=== PATIENT | female | born 1970 ===

== ENCOUNTER 2021-02-27 13:01 | Emergency (ER) | payer OTHER, SELFPAY ==
[2021-02-27] VITALS (15 sets, daily range): BP systolic 148–172; BP diastolic 78–105; PULSE 82–104; RESP 13–39; O2SAT 93–99
--- NOTE | 2021-02-27 13:24 | DI.RAD.S_ITS ---
PROCEDURE: XR CHEST 1V INDICATIONS: flu-like symptoms TECHNIQUE: One view of the chest was acquired. COMPARISON: None. FINDINGS: Surgical changes and devices: None. Lungs and pleura: Lungs are clear. No pleural effusions or pneumothorax. Mediastinum: Mediastinal contours appear normal. Heart size is enlarged. Bones and chest wall: No suspicious bony lesions. Overlying soft tissues appear unremarkable. IMPRESSION: No acute cardiopulmonary pathology. Dictated by: Dhiraj Flynn M.D. on 02/27/2021 at 14:07 Approved by: Dhiraj Flynn M.D. on 02/27/2021 at 14:08
[2021-02-27 13:43] LABS: Add Manual Diff / Slide Review NO; Basophils Absolute Auto 0 /uL (0-100); Basophils Percent Auto 0.4 % (0-2); Eosinophils Absolute Auto 600 /uL (0-450); Eosinophils Percent Auto 6.8 % (2-4); Hematocrit 34.1 % (36-46); Hemoglobin 11.3 g/dL (12.0-16.0); Lymphocytes Absolute Auto 1600 /uL (1100-4500); Mean Corpuscular HGB Conc 33.1 % (30-36); Mean Corpuscular Hemoglobin 26.9 PG (26-34); Mean Corpuscular Volume 81.4 fL (80-100); Monocytes Absolute Auto 600 /uL (0-900); Monocytes Percent Auto 5.9 % (3-14); Neutrophils Absolute Auto 6600 /uL (1500-7000); Neutrophils Percent Auto 69.9 % (50-75); Platelet Count 331 X10^3/uL (150-400); Red Blood Cell Count 4.19 X10^6/uL (4.0-5.2); White Blood Cell Count 9.5 X10^3/uL (4.5-11.0)
[2021-02-27 13:44] LABS: COVID19 -Nasal RAPID Negative (Negative)
[2021-02-27 13:49] LABS: D Dimer 546 ng/mL (<230)
--- NOTE | 2021-02-27 13:53 | DI.CT.S_ITS ---
PROCEDURE: CT ANGIO CHEST INDICATIONS: SOB, elevated D-dimer, r/o PE TECHNIQUE: After the administration of intravenous contrast, 2 mm thick sections acquired from the pulmonary apices to the posterior costophrenic angles. 3-dimensional maximum intensity projection (MIP) coronal and sagittal reformats were then acquired through the thorax. For radiation dose reduction, the following was used: automated exposure control, adjustment of mA and/or kV according to patient size. COMPARISON: [facility], CR, XR CHEST 1V, 02/27/2021, 13:45. FINDINGS: Image quality: Excellent. Pulmonary arteries: Pulmonary arteries are normal in size, and demonstrate no intraluminal filling defects to suggest central pulmonary embolism. Lungs and pleura: No evidence of pneumonia or edema. 3 mm subpleural nodule within the right upper lobe anterolaterally (series 5, image 107). Mild scarring versus atelectasis within the left posterior lung base. Sessile 5 mm nodule within the medial aspect of the left major fissure. Subpleural 4 mm nodule within the left upper lobe posteriorly adjacent to the major fissure (series 5, image 68). No pleural effusions or pneumothorax. Central and peripheral airways are patent. Mediastinum: Heart size is normal, without pericardial effusion. No mediastinal or hilar adenopathy. Thoracic aorta is normal in caliber and enhancement. Esophagus is normal in caliber, without hiatal hernia. Bones and chest wall: No suspicious bony lesions. Ribs and thoracic spine appear intact throughout. Thyroid gland is grossly unremarkable. No axillary or supraclavicular adenopathy. Abdomen: Visualized upper abdominal solid organs appear normal in the early arterial phase of enhancement. IMPRESSION: 1. No acute process. No pulmonary embolus. 2. Small bilateral pulmonary nodules. Follow-up is recommended as below. Fleischner Society criteria for SOLID lung nodule followup. Nodule size (mm)Low-risk patientHigh-risk patient<6 (single or multiple)No routine followup.Optional CT at 12 months. 6-8 (single or multiple)CT at 6-12 months, then optional CT at 18-24 mo.CT at 6-[address], [address] at 18-24 months. >8 (single)CT, PET-CT, or biopsy at 3 months. Same as for low-risk pts. >8 (multiple)CT at 3-6 months, then optional CT at 18-24 mo.CT at 3-6 months, then CT at 18-24 months. Recommendations do not apply to lung cancer screening, patients with immunosuppression, or patients with known primary cancer. Dictated by: Meg Diaz M.D. on 02/27/2021 at 14:30 Approved by: Meg Diaz M.D. on 02/27/2021 at 14:34
[2021-02-27 13:58] LABS: Lactate (Lactic Acid) 2.1 mmol/L (0.7-2.1)
[2021-02-27 14:00] LABS: Alanine Aminotransferase 20 IU/L (<35); Albumin 4.1 g/dL (3.5-5.0); Albumin Globulin Ratio 1.3 (1.0-2.8); Alkaline Phosphatase 59 U/L (38-126); Aspartate Aminotransferase 24 IU/L (14-36); BUN Creatinine Ratio 14.8 (6-22); Bilirubin Total 0.4 mg/dL (0.2-1.3); Blood Urea Nitrogen 8 mg/dL (7-17); C-Reactive Protein Quant 0.6 mg/dL (<1.0); Calcium 8.9 mg/dL (8.4-10.2); Carbon Dioxide 22 mmol/L (22-32); Chloride 106 mmol/L (98-107); Creatine Kinase 25 U/L (30-135); Estimated Glomerular Filt Rate > 60.0 mL/min (>60); Globulin 3.2 g/dL (1.7-4.1); Glucose 138 mg/dL (70-100); HEMOLYSIS < 15 (0-50); Potassium 3.5 mmol/L (3.4-5.1); Sodium 137 mmol/L (137-145); Total Protein 7.3 g/dL (6.3-8.2)
[2021-02-27 14:09] LABS: NT-proBNP (BNP-Adult 18+) 128 pg/mL (<125); Troponin I < 0.012 ng/mL (0.01-0.034)
[2021-02-27 14:26] LABS: Adenovirus Not Detected (Not Detect); B. parapertussis Not Detected (Not Detecte); Bordetella pertussis Not Detected (Not Detecte); Chlamydophila pneumoniae Not Detected (Not Detect); Coronavirus 229E Not Detected (Not Detect); Coronavirus HKU1 Not Detected (Not Detect); Coronavirus NL 63 Not Detected (Not Detect); Coronavirus OC43 Not Detected (Not Detect); Human Metapneumovirus Not Detected (Not Detect); Human Rhinovirus/Enterovirus Detected (Not Detect); Influenza A Not Detected (Not Detect); Influenza B Not Detected (Not Detect); Mycoplasma pneumoniae Not Detected (Not Detect); Parainfluenza Virus 1 Not Detected (Not Detect); Parainfluenza Virus 2 Not Detected (Not Detect); Parainfluenza Virus 3 Not Detected (Not Detect); Parainfluenza Virus 4 Not Detected (Not Detect); Respiratory Syncytial Virus Not Detected (Not Detect); SARS- CoV-2 Not Detected (Not Detecte)
[2021-02-27 14:32] LABS: Ferritin 7 ng/mL (11-264)
[2021-02-27 15:02] LABS: Procalcitonin 0.043 ng/mL (<0.5)
--- NOTE | 2021-02-27 15:06 | ED.SOB ---
HPI - SOB/Dyspnea <Edward Eason PA-C - Last Filed: 02/27/21 19:50> General Chief Complaint: Shortness of Breath/Dyspnea Stated Complaint: Trouble breathing, coughing Time Seen by Provider: 02/27/21 13:33 Source: patient Mode of arrival: Ambulatory Limitations: no limitations History of Present Illness HPI Narrative: Patient is a 50-year-old female presenting to the emergency department today for evaluation of shortness of breath that began yesterday. Patient states that she had trouble to [facility] last week to visit her daughter for Thanksgiving. After the visit she noted that she started to begin experiencing a sore throat 4 days ago. She then began to experience a productive cough yesterday with increased difficulty breathing, noting that the inhaler that she uses for asthma exacerbations was not helping her symptoms. She also reports chest pain with deep inspiration, episodes of chills last night, an episode of diarrhea yesterday, and headache today. Patient denies fever, abdominal pain, nausea, vomiting, dysuria, hematuria, numbness or tingling in the extremities, hemoptysis. Of note, patient states that she had experienced a blood clot back in 2000 following a . No other concerns voiced this time. Related Data Home Medications Medication Instructions Recorded Confirmed albuterol sulfate 90 mcg/actuation 2 inh INHALATION Q6HR PRN 02/27/21 02/27/21 aerosol inhaler montelukast 4 mg chewable tablet 4 mg PO QAM 02/27/21 02/27/21 ropinirole 0.25 mg tablet 0.25 mg PO BEDTIME 02/27/21 02/27/21 Previous Rx's Medication Instructions Recorded prednisone 50 mg tablet 50 mg PO DAILY #5 tab 02/27/21 Allergies Allergy/AdvReac Type Severity Reaction Status Date / Time sulfamethoxazole Allergy Unknown Verified 02/27/21 14:13 [From Bactrim] trimethoprim [From Bactrim] Allergy Unknown Verified 02/27/21 14:13 Review of Systems <Edward Eason PA-C - Last Filed: 02/27/21 19:50> Constitutional Constitutional: Reports chills, Denies fatigue, Denies fever(s), Denies frequent falls, Reports headache(s), Denies lethargy and Denies weakness ENT Ears, Nose, Mouth, and Throat: Denies change in voice, Denies dizziness, Reports headache(s), Denies neck pain, Reports sore throat and Denies throat swelling Cardiovascular Cardiovascular: Reports chest pain, Denies irregular heart rhythm, Denies lightheadedness, Denies palpitations, Reports dyspnea and Reports dyspnea on exertion Respiratory Respiratory: Reports cough, Reports dyspnea, Reports dyspnea on exertion and Reports wheezing Gastrointestinal Gastrointestinal: Denies abdominal pain, Denies change in bowel habits, Reports diarrhea, Denies nausea and Denies vomiting Genitourinary Genitourinary: Denies hematuria, Denies flank pain, Denies urinary incontinence and Denies urinary urgency Musculoskeletal Musculoskeletal: Denies neck pain Neurologic Neurologic: Denies dizziness, Denies frequent falls, Reports headache(s) and Denies weakness Endocrine Endocrine: Denies fatigue and Denies palpitations Allergic/Immunologic Allergic/Immunologic: Denies urticaria, Denies throat swelling and Reports wheezing Patient History <Edward aEson PA-C - Last Filed: 02/27/21 19:50> Social History Smoking Status: Never smoker Smoking Status: Never smoker Substance Use Type: does not use Exam <Edward Eason PA-C - Last Filed: 02/27/21 19:50> Narrative Exam Narrative: GENERAL: 50 year old patient appears stated age. Well-developed patient, in mild distress. HEAD: Atraumatic. Normocephalic. EYES: Pupils equal round and reactive. Extraocular motions intact. No scleral icterus. No injection or drainage. ENT: Nose without bleeding, purulent drainage. Throat without erythema, tonsillar hypertrophy or exudate. Airway patent. NECK: Trachea midline. Non tender CARDIOVASCULAR: Regular rate and rhythm without murmurs, gallops, or rubs. RESPIRATORY: Inspiratory wheeze throughout all lobes bilaterally and expiratory stridor auscultated. GASTROINTESTINAL: Abdomen soft, non-tender, nondistended. EXTREMITIES: No edema or joint tenderness. BACK: Nontender without deformity or crepitance. No flank tenderness. NEURO: AOx3. SKIN: No rash or erythema of visible areas Initial Vital Signs Initial Vital Signs: Vital Signs Pulse Rate 96 H 02/27/21 13:10 Blood Pressure 172/103 H 02/27/21 13:10 Pulse Oximetry 94 02/27/21 13:10 <Aaron Graham DO - Last Filed: 03/01/21 07:18> Initial Vital Signs Initial Vital Signs: Vital Signs Pulse Rate 96 H 02/27/21 13:10 Blood Pressure 172/103 H 02/27/21 13:10 Pulse Oximetry 94 02/27/21 13:10 Course <Edward Eason PA-C - Last Filed: 02/27/21 19:50> Course Course Narrative: COVID swab, CMP CBC, D-dimer, ferritin, lactate, BNP, troponin, CRP, procalcitonin, chest x-ray, CT angiogram, EKG, and blood culture obtained Orders Ordered: Discontinued Medications Albuterol/Ipratropium (Albuterol/Ipratropium 3 Ml Ampul) 3 ml INH NOW ONE Stop: 02/27/21 15:01 Last Admin: 02/27/21 15:29 Dose: 3 ml Documented by: NICHOLAS Vital Signs Vital signs: Vital Signs - 8 hr 02/27/21 13:10 02/27/21 13:12 02/27/21 13:13 Pulse Rate 96 H 98 H 104 H Respiratory Rate 35 H 18 Blood Pressure 172/103 H 172/105 H 172/103 H Pulse Oximetry 94 94 96 02/27/21 13:15 02/27/21 13:30 02/27/21 13:45 Pulse Rate 95 H 85 97 H Respiratory Rate 13 16 39 H Blood Pressure 154/78 H Pulse Oximetry 95 93 95 02/27/21 14:00 02/27/21 14:20 02/27/21 14:30 Pulse Rate 89 84 84 Respiratory Rate 20 15 21 Blood Pressure 154/95 H Pulse Oximetry 95 95 93 02/27/21 14:45 02/27/21 15:00 02/27/21 15:13 Pulse Rate 82 83 87 Respiratory Rate 21 21 32 H Blood Pressure 152/102 H Pulse Oximetry 94 94 95 02/27/21 15:33 02/27/21 15:35 02/27/21 16:23 Pulse Rate 86 88 90 Respiratory Rate 18 18 Blood Pressure 148/78 H Pulse Oximetry 98 97 99 <Aaron Graham DO - Last Filed: 03/01/21 07:18> Orders Ordered: Discontinued Medications Albuterol/Ipratropium (Albuterol/Ipratropium 3 Ml Ampul) 3 ml INH NOW ONE Stop: 02/27/21 15:01 Last Admin: 02/27/21 15:29 Dose: 3 ml Documented by: NICHOLAS Vital Signs Vital signs: Vital Signs - 8 hr 02/27/21 13:10 02/27/21 13:12 02/27/21 13:13 Pulse Rate 96 H 98 H 104 H Respiratory Rate 35 H 18 Blood Pressure 172/103 H 172/105 H 172/103 H Pulse Oximetry 94 94 96 02/27/21 13:15 02/27/21 13:30 02/27/21 13:45 Pulse Rate 95 H 85 97 H Respiratory Rate 13 16 39 H Blood Pressure 154/78 H Pulse Oximetry 95 93 95 02/27/21 14:00 02/27/21 14:20 02/27/21 14:30 Pulse Rate 89 84 84 Respiratory Rate 20 15 21 Blood Pressure 154/95 H Pulse Oximetry 95 95 93 02/27/21 14:45 02/27/21 15:00 02/27/21 15:13 Pulse Rate 82 83 87 Respiratory Rate 21 21 32 H Blood Pressure 152/102 H Pulse Oximetry 94 94 95 02/27/21 15:33 02/27/21 15:35 02/27/21 16:23 Pulse Rate 86 88 90 Respiratory Rate 18 18 Blood Pressure 148/78 H Pulse Oximetry 98 97 99 MDM - SOB/Dyspnea <Edward Eason PA-C - Last Filed: 02/27/21 19:50> Lab Data Result diagrams: 02/27/21 13:20 02/27/21 13:20 Labs: Lab Results 02/27/21 02/27/21 02/27/21 Range/Units 13:09 13:20 13:20 WBC (4.5-11.0) X10^3/uL RBC (4.0-5.2) X10^6/uL Hgb (12.0-16.0) g/dL Hct (36-46) % MCV (80-100) fL MCH (26-34) PG MCHC (30-36) % RDW (11.6-14.8) % Plt Count (150-400) X10^3/uL Neut % (Auto) (50-75) % Lymph % (Auto) (25-40) % [place] % (Auto) (3-14) % Eos % (Auto) (2-4) % Baso % (Auto) (0-2) % Neut # (Auto) (9417-2982) /uL Lymph # (Auto) (3913-6498) /uL [place] # (Auto) (0-900) /uL Eos # (Auto) (0-450) /uL Baso # (Auto) (0-100) /uL D-Dimer 546 H (<230) ng/mL Sodium (137-145) mmol/L Potassium (3.4-5.1) mmol/L Chloride (98-107) mmol/L Carbon Dioxide (22-32) mmol/L BUN (7-17) mg/dL Creatinine (0.52-1.04) mg/dL Estimated GFR (>60) mL/min BUN/Creatinine Ratio (6-22) Glucose (70-100) mg/dL Lactate (0.7-2.1) mmol/L Calcium (8.4-10.2) mg/dL Ferritin (11-264) ng/mL Total Bilirubin (0.2-1.3) mg/dL AST (14-36) IU/L ALT (<35) IU/L Alkaline Phosphatase (38-126) U/L Total Creatine Kinase (30-135) U/L CK-MB (CK-2) CK-MB (CK-2) Rel Index Troponin I (0.01-0.034) ng/mL C-Reactive Protein (<1.0) mg/dL NT-Pro-B Natriuret Pep (<125) pg/mL Total Protein (6.3-8.2) g/dL Albumin (3.5-5.0) g/dL Globulin (1.7-4.1) g/dL Albumin/Globulin Ratio (1.0-2.8) Procalcitonin 0.043 (<0.5) ng/mL Chlamy pneumoniae PCR (Not Detect) Adenovirus (PCR) (Not Detect) B. pertussis DNA (PCR) (Not Detecte) B.parapertussis DNA PCR (Not Detecte) Coronavirus OC43 (PCR) (Not Detect) Coronavirus HKU1 (PCR) (Not Detect) Coronavirus 229E (PCR) (Not Detect) SARS-CoV-2 (PCR) Negative (Negative) Coronavirus NL63 (PCR) (Not Detect) Human Metapneumovir PCR (Not Detect) Influenza Type A (PCR) (Not Detect) Influenza Type B (PCR) (Not Detect) M. pneumoniae (PCR) (Not Detect) Parainfluenza 1 (PCR) (Not Detect) Parainfluenza 2 (PCR) (Not Detect) Parainfluenza 3 (PCR) (Not Detect) Parainfluenza 4 (PCR) (Not Detect) RSV (PCR) (Not Detect) Entero/Rhino (PCR) (Not Detect) 02/27/21 02/27/21 02/27/21 Range/Units 13:20 13:20 13:20 WBC 9.5 (4.5-11.0) X10^3/uL RBC 4.19 (4.0-5.2) X10^6/uL Hgb 11.3 L (12.0-16.0) g/dL Hct 34.1 L (36-46) % MCV 81.4 (80-100) fL MCH 26.9 (26-34) PG MCHC 33.1 (30-36) % RDW 14.0 (11.6-14.8) % Plt Count 331 (150-400) X10^3/uL Neut % (Auto) 69.9 (50-75) % Lymph % (Auto) 17.0 L (25-40) % Payette % (Auto) 5.9 (3-14) % Eos % (Auto) 6.8 H (2-4) % Baso % (Auto) 0.4 (0-2) % Neut # (Auto) 6600 (5299-1834) /uL Lymph # (Auto) 1600 (3776-6318) /uL Payette # (Auto) 600 (0-900) /uL Eos # (Auto) 600 H (0-450) /uL Baso # (Auto) 0 (0-100) /uL D-Dimer (<230) ng/mL Sodium 137 (137-145) mmol/L Potassium 3.5 (3.4-5.1) mmol/L Chloride 106 (98-107) mmol/L Carbon Dioxide 22 (22-32) mmol/L BUN 8 (7-17) mg/dL Creatinine 0.54 (0.52-1.04) mg/dL Estimated GFR > 60.0 (>60) mL/min BUN/Creatinine Ratio 14.8 (6-22) Glucose 138 H (70-100) mg/dL Lactate 2.1 (0.7-2.1) mmol/L Calcium 8.9 (8.4-10.2) mg/dL Ferritin 7 L (11-264) ng/mL Total Bilirubin 0.4 (0.2-1.3) mg/dL AST 24 (14-36) IU/L ALT 20 (<35) IU/L Alkaline Phosphatase 59 (38-126) U/L Total Creatine Kinase 25 L (30-135) U/L CK-MB (CK-2) TNP CK-MB (CK-2) Rel Index TNP Troponin I < 0.012 (0.01-0.034) ng/mL C-Reactive Protein 0.6 (<1.0) mg/dL NT-Pro-B Natriuret Pep 128 H (<125) pg/mL Total Protein 7.3 (6.3-8.2) g/dL Albumin 4.1 (3.5-5.0) g/dL Globulin 3.2 (1.7-4.1) g/dL Albumin/Globulin Ratio 1.3 (1.0-2.8) Procalcitonin (<0.5) ng/mL Chlamy pneumoniae PCR (Not Detect) Adenovirus (PCR) (Not Detect) B. pertussis DNA (PCR) (Not Detecte) B.parapertussis DNA PCR (Not Detecte) Coronavirus OC43 (PCR) (Not Detect) Coronavirus HKU1 (PCR) (Not Detect) Coronavirus 229E (PCR) (Not Detect) SARS-CoV-2 (PCR) (Negative) Coronavirus NL63 (PCR) (Not Detect) Human Metapneumovir PCR (Not Detect) Influenza Type A (PCR) (Not Detect) Influenza Type B (PCR) (Not Detect) M. pneumoniae (PCR) (Not Detect) Parainfluenza 1 (PCR) (Not Detect) Parainfluenza 2 (PCR) (Not Detect) Parainfluenza 3 (PCR) (Not Detect) Parainfluenza 4 (PCR) (Not Detect) RSV (PCR) (Not Detect) Entero/Rhino (PCR) (Not Detect) 02/27/21 Range/Units 13:20 WBC (4.5-11.0) X10^3/uL RBC (4.0-5.2) X10^6/uL Hgb (12.0-16.0) g/dL Hct (36-46) % MCV (80-100) fL MCH (26-34) PG MCHC (30-36) % RDW (11.6-14.8) % Plt Count (150-400) X10^3/uL Neut % (Auto) (50-75) % Lymph % (Auto) (25-40) % Payette % (Auto) (3-14) % Eos % (Auto) (2-4) % Baso % (Auto) (0-2) % Neut # (Auto) (7084-3071) /uL Lymph # (Auto) (3384-5464) /uL Payette # (Auto) (0-900) /uL Eos # (Auto) (0-450) /uL Baso # (Auto) (0-100) /uL D-Dimer (<230) ng/mL Sodium (137-145) mmol/L Potassium (3.4-5.1) mmol/L Chloride (98-107) mmol/L Carbon Dioxide (22-32) mmol/L BUN (7-17) mg/dL Creatinine (0.52-1.04) mg/dL Estimated GFR (>60) mL/min BUN/Creatinine Ratio (6-22) Glucose (70-100) mg/dL Lactate (0.7-2.1) mmol/L Calcium (8.4-10.2) mg/dL Ferritin (11-264) ng/mL Total Bilirubin (0.2-1.3) mg/dL AST (14-36) IU/L ALT (<35) IU/L Alkaline Phosphatase (38-126) U/L Total Creatine Kinase (30-135) U/L CK-MB (CK-2) CK-MB (CK-2) Rel Index Troponin I (0.01-0.034) ng/mL C-Reactive Protein (<1.0) mg/dL NT-Pro-B Natriuret Pep (<125) pg/mL Total Protein (6.3-8.2) g/dL Albumin (3.5-5.0) g/dL Globulin (1.7-4.1) g/dL Albumin/Globulin Ratio (1.0-2.8) Procalcitonin (<0.5) ng/mL Chlamy pneumoniae PCR Not detected (Not Detect) Adenovirus (PCR) Not detected (Not Detect) B. pertussis DNA (PCR) Not detected (Not Detecte) B.parapertussis DNA PCR Not detected (Not Detecte) Coronavirus OC43 (PCR) Not detected (Not Detect) Coronavirus HKU1 (PCR) Not detected (Not Detect) Coronavirus 229E (PCR) Not detected (Not Detect) SARS-CoV-2 (PCR) Not detected (Negative) Coronavirus NL63 (PCR) Not detected (Not Detect) Human Metapneumovir PCR Not detected (Not Detect) Influenza Type A (PCR) Not detected (Not Detect) Influenza Type B (PCR) Not detected (Not Detect) M. pneumoniae (PCR) Not detected (Not Detect) Parainfluenza 1 (PCR) Not detected (Not Detect) Parainfluenza 2 (PCR) Not detected (Not Detect) Parainfluenza 3 (PCR) Not detected (Not Detect) Parainfluenza 4 (PCR) Not detected (Not Detect) RSV (PCR) Not detected (Not Detect) Entero/Rhino (PCR) Detected H (Not Detect) Imaging Data Chest x-ray: Radiologist's Impression: PROCEDURE:? XR CHEST 1V ? INDICATIONS:? flu-like symptoms ? TECHNIQUE:? One view of the chest was acquired.? ? COMPARISON:? None. ? FINDINGS:? ? Surgical changes and devices:? None.? ? Lungs and pleura:? Lungs are clear.? No pleural effusions or pneumothorax.? ? Mediastinum:? Mediastinal contours appear normal.? Heart size is enlarged.? ? Bones and chest wall:? No suspicious bony lesions.? Overlying soft tissues appear unremarkable.? ? IMPRESSION:? No acute cardiopulmonary pathology. ? ? Dictated by: Dhiraj Flynn M.D. on 02/27/2021 at 14:07 ? ? Approved by: Dhiraj Flynn M.D. on 02/27/2021 at 14:08 ? CT scan - chest: Radiologist's Impression: PROCEDURE:? CT ANGIO CHEST ? INDICATIONS:? SOB, elevated D-dimer, r/o PE ? TECHNIQUE:? After the administration of intravenous contrast, 2 mm thick sections acquired from the pulmonary apices to the posterior costophrenic angles.? 3-dimensional maximum intensity projection (MIP) coronal and sagittal reformats were then acquired through the thorax.? For radiation dose reduction, the following was used:? automated exposure control, adjustment of mA and/or kV according to patient size.? ? COMPARISON:? [facility], CR, XR CHEST 1V, 02/27/2021, 13:45. ? FINDINGS:? Image quality:? Excellent.? ? Pulmonary arteries:? Pulmonary arteries are normal in size, and demonstrate no intraluminal filling defects to suggest central pulmonary embolism.? ? Lungs and pleura:? No evidence of pneumonia or edema.? 3 mm subpleural nodule within the right upper lobe anterolaterally (series 5, image 107).? Mild scarring versus atelectasis within the left posterior lung base.? Sessile 5 mm nodule within the medial aspect of the left major fissure.? Subpleural 4 mm nodule within the left upper lobe posteriorly adjacent to the major fissure (series 5, image 68).? No pleural effusions or pneumothorax.? Central and peripheral airways are patent.? ? Mediastinum:? Heart size is normal, without pericardial effusion.? No mediastinal or hilar adenopathy.? Thoracic aorta is normal in caliber and enhancement.? Esophagus is normal in caliber, without hiatal hernia.? ? Bones and chest wall:? No suspicious bony lesions.? Ribs and thoracic spine appear intact throughout.? Thyroid gland is grossly unremarkable.? No axillary or supraclavicular adenopathy.? ? Abdomen:? Visualized upper abdominal solid organs appear normal in the early arterial phase of enhancement.? ? IMPRESSION:? 1. No acute process.? No pulmonary embolus. 2. Small bilateral pulmonary nodules.? Follow-up is recommended as below. ? Fleischner Society criteria for SOLID lung nodule followup.? Nodule size (mm)Low-risk patientHigh-risk patient<6 (single or multiple)No routine followup.Optional CT at 12 months. 6-8 (single or multiple)CT at 6-12 months, then optional CT at 18-24 mo.CT at 6-12 months, then CT at 18-24 months.? >8 (single)CT, PET-CT, or biopsy at 3 months. Same as for low-risk pts.? >8 (multiple)CT at 3-6 months, then optional CT at 18-24 mo.CT at 3-6 months, then CT at 18-24 months.? Recommendations do not apply to lung cancer screening, patients with immunosuppression, or patients with known primary cancer. ? ECG Data Interpretation: Ventricular rate of 90 beats per minute, TN interval of 148 ms, no ST wave changes. MDM Narrative Medical decision making narrative: Patient is a 50-year-old female presenting to the emergency department today for evaluation of shortness of breath that began yesterday. To consider pulmonary embolism versus pneumonia versus asthma exacerbation versus viral upper respiratory infection versus atelectasis versus pneumothorax versus hemothorax. Overall history, physical examination, laboratory results and imaging results are reassuring. Patient also states that she is feeling better after a DuoNeb treatment in the emergency department. At this time the patient feels comfortable being discharged home after return precautions were discussed. <Aaron Graham, - Last Filed: 03/01/21 07:18> Lab Data Labs: Lab Results 02/27/21 02/27/21 02/27/21 Range/Units 13:09 13:20 13:20 WBC (4.5-11.0) X10^3/uL RBC (4.0-5.2) X10^6/uL Hgb (12.0-16.0) g/dL Hct (36-46) % MCV (80-100) fL MCH (26-34) PG MCHC (30-36) % RDW (11.6-14.8) % Plt Count (150-400) X10^3/uL Neut % (Auto) (50-75) % Lymph % (Auto) (25-40) % Payette % (Auto) (3-14) % Eos % (Auto) (2-4) % Baso % (Auto) (0-2) % Neut # (Auto) (6010-9223) /uL Lymph # (Auto) (0395-8725) /uL Payette # (Auto) (0-900) /uL Eos # (Auto) (0-450) /uL Baso # (Auto) (0-100) /uL D-Dimer 546 H (<230) ng/mL Sodium (137-145) mmol/L Potassium (3.4-5.1) mmol/L Chloride (98-107) mmol/L Carbon Dioxide (22-32) mmol/L BUN (7-17) mg/dL Creatinine (0.52-1.04) mg/dL Estimated GFR (>60) mL/min BUN/Creatinine Ratio (6-22) Glucose (70-100) mg/dL Lactate (0.7-2.1) mmol/L Calcium (8.4-10.2) mg/dL Ferritin (11-264) ng/mL Total Bilirubin (0.2-1.3) mg/dL AST (14-36) IU/L ALT (<35) IU/L Alkaline Phosphatase (38-126) U/L Total Creatine Kinase (30-135) U/L CK-MB (CK-2) CK-MB (CK-2) Rel Index Troponin I (0.01-0.034) ng/mL C-Reactive Protein (<1.0) mg/dL NT-Pro-B Natriuret Pep (<125) pg/mL Total Protein (6.3-8.2) g/dL Albumin (3.5-5.0) g/dL Globulin (1.7-4.1) g/dL Albumin/Globulin Ratio (1.0-2.8) Procalcitonin 0.043 (<0.5) ng/mL Chlamy pneumoniae PCR (Not Detect) Adenovirus (PCR) (Not Detect) B. pertussis DNA (PCR) (Not Detecte) B.parapertussis DNA PCR (Not Detecte) Coronavirus OC43 (PCR) (Not Detect) Coronavirus HKU1 (PCR) (Not Detect) Coronavirus 229E (PCR) (Not Detect) SARS-CoV-2 (PCR) Negative (Negative) Coronavirus NL63 (PCR) (Not Detect) Human Metapneumovir PCR (Not Detect) Influenza Type A (PCR) (Not Detect) Influenza Type B (PCR) (Not Detect) M. pneumoniae (PCR) (Not Detect) Parainfluenza 1 (PCR) (Not Detect) Parainfluenza 2 (PCR) (Not Detect) Parainfluenza 3 (PCR) (Not Detect) Parainfluenza 4 (PCR) (Not Detect) RSV (PCR) (Not Detect) Entero/Rhino (PCR) (Not Detect) 02/27/21 02/27/21 02/27/21 Range/Units 13:20 13:20 13:20 WBC 9.5 (4.5-11.0) X10^3/uL RBC 4.19 (4.0-5.2) X10^6/uL Hgb 11.3 L (12.0-16.0) g/dL Hct 34.1 L (36-46) % MCV 81.4 (80-100) fL MCH 26.9 (26-34) PG MCHC 33.1 (30-36) % RDW 14.0 (11.6-14.8) % Plt Count 331 (150-400) X10^3/uL Neut % (Auto) 69.9 (50-75) % Lymph % (Auto) 17.0 L (25-40) % Payette % (Auto) 5.9 (3-14) % Eos % (Auto) 6.8 H (2-4) % Baso % (Auto) 0.4 (0-2) % Neut # (Auto) 6600 (9955-6068) /uL Lymph # (Auto) 1600 (8067-9276) /uL Payette # (Auto) 600 (0-900) /uL Eos # (Auto) 600 H (0-450) /uL Baso # (Auto) 0 (0-100) /uL D-Dimer (<230) ng/mL Sodium 137 (137-145) mmol/L Potassium 3.5 (3.4-5.1) mmol/L Chloride 106 (98-107) mmol/L Carbon Dioxide 22 (22-32) mmol/L BUN 8 (7-17) mg/dL Creatinine 0.54 (0.52-1.04) mg/dL Estimated GFR > 60.0 (>60) mL/min BUN/Creatinine Ratio 14.8 (6-22) Glucose 138 H (70-100) mg/dL Lactate 2.1 (0.7-2.1) mmol/L Calcium 8.9 (8.4-10.2) mg/dL Ferritin 7 L (11-264) ng/mL Total Bilirubin 0.4 (0.2-1.3) mg/dL AST 24 (14-36) IU/L ALT 20 (<35) IU/L Alkaline Phosphatase 59 (38-126) U/L Total Creatine Kinase 25 L (30-135) U/L CK-MB (CK-2) TNP CK-MB (CK-2) Rel Index TNP Troponin I < 0.012 (0.01-0.034) ng/mL C-Reactive Protein 0.6 (<1.0) mg/dL NT-Pro-B Natriuret Pep 128 H (<125) pg/mL Total Protein 7.3 (6.3-8.2) g/dL Albumin 4.1 (3.5-5.0) g/dL Globulin 3.2 (1.7-4.1) g/dL Albumin/Globulin Ratio 1.3 (1.0-2.8) Procalcitonin (<0.5) ng/mL Chlamy pneumoniae PCR (Not Detect) Adenovirus (PCR) (Not Detect) B. pertussis DNA (PCR) (Not Detecte) B.parapertussis DNA PCR (Not Detecte) Coronavirus OC43 (PCR) (Not Detect) Coronavirus HKU1 (PCR) (Not Detect) Coronavirus 229E (PCR) (Not Detect) SARS-CoV-2 (PCR) (Negative) Coronavirus NL63 (PCR) (Not Detect) Human Metapneumovir PCR (Not Detect) Influenza Type A (PCR) (Not Detect) Influenza Type B (PCR) (Not Detect) M. pneumoniae (PCR) (Not Detect) Parainfluenza 1 (PCR) (Not Detect) Parainfluenza 2 (PCR) (Not Detect) Parainfluenza 3 (PCR) (Not Detect) Parainfluenza 4 (PCR) (Not Detect) RSV (PCR) (Not Detect) Entero/Rhino (PCR) (Not Detect) 02/27/21 Range/Units 13:20 WBC (4.5-11.0) X10^3/uL RBC (4.0-5.2) X10^6/uL Hgb (12.0-16.0) g/dL Hct (36-46) % MCV (80-100) fL MCH (26-34) PG MCHC (30-36) % RDW (11.6-14.8) % Plt Count (150-400) X10^3/uL Neut % (Auto) (50-75) % Lymph % (Auto) (25-40) % Payette % (Auto) (3-14) % Eos % (Auto) (2-4) % Baso % (Auto) (0-2) % Neut # (Auto) (6288-7795) /uL Lymph # (Auto) (1968-7844) /uL [place]ette # (Auto) (0-900) /uL Eos # (Auto) (0-450) /uL Baso # (Auto) (0-100) /uL D-Dimer (<230) ng/mL Sodium (137-145) mmol/L Potassium (3.4-5.1) mmol/L Chloride (98-107) mmol/L Carbon Dioxide (22-32) mmol/L BUN (7-17) mg/dL Creatinine (0.52-1.04) mg/dL Estimated GFR (>60) mL/min BUN/Creatinine Ratio (6-22) Glucose (70-100) mg/dL Lactate (0.7-2.1) mmol/L Calcium (8.4-10.2) mg/dL Ferritin (11-264) ng/mL Total Bilirubin (0.2-1.3) mg/dL AST (14-36) IU/L ALT (<35) IU/L Alkaline Phosphatase (38-126) U/L Total Creatine Kinase (30-135) U/L CK-MB (CK-2) CK-MB (CK-2) Rel Index Troponin I (0.01-0.034) ng/mL C-Reactive Protein (<1.0) mg/dL NT-Pro-B Natriuret Pep (<125) pg/mL Total Protein (6.3-8.2) g/dL Albumin (3.5-5.0) g/dL Globulin (1.7-4.1) g/dL Albumin/Globulin Ratio (1.0-2.8) Procalcitonin (<0.5) ng/mL Chlamy pneumoniae PCR Not detected (Not Detect) Adenovirus (PCR) Not detected (Not Detect) B. pertussis DNA (PCR) Not detected (Not Detecte) B.parapertussis DNA PCR Not detected (Not Detecte) Coronavirus OC43 (PCR) Not detected (Not Detect) Coronavirus HKU1 (PCR) Not detected (Not Detect) Coronavirus 229E (PCR) Not detected (Not Detect) SARS-CoV-2 (PCR) Not detected (Negative) Coronavirus NL63 (PCR) Not detected (Not Detect) Human Metapneumovir PCR Not detected (Not Detect) Influenza Type A (PCR) Not detected (Not Detect) Influenza Type B (PCR) Not detected (Not Detect) M. pneumoniae (PCR) Not detected (Not Detect) Parainfluenza 1 (PCR) Not detected (Not Detect) Parainfluenza 2 (PCR) Not detected (Not Detect) Parainfluenza 3 (PCR) Not detected (Not Detect) Parainfluenza 4 (PCR) Not detected (Not Detect) RSV (PCR) Not detected (Not Detect) Entero/Rhino (PCR) Detected H (Not Detect) Discharge Plan Departure Patient Disposition: Home Clinical Impression: Asthma with exacerbation, Rhinovirus infection, Pulmonary nodules Activity Restrictions/Additional Instructions: *You have been diagnosed with asthma exacerbation, rhino virus infection, pulmonary nodules *What to do: *Please continue to take your regular medications as directed. [X] New medication prescriptions sent to your pharmacy: [facility] - Prednisone [ ] New medication written as a paper prescription [ ] No new medications given *Please follow up with your primary care provider in 2-3 days, call for an appointment. Let them know you were seen in the Emergency Department and that we ask that you be seen in follow up. We will electronically transmit a record of today's note if your PCP is in our system *If you do not have a primary care provider please contact the [facility] Resource line at [phone]. They will ask some questions about your medical history and help get you set up with a doctor in the community. *Return to Emergency Department if you should have any new, worsening or concerning symptoms, such as fever greater than 101 F, shaking chills, worsening shortness of breath, worsening chest pain, persistent vomiting or other bothersome symptoms Prescriptions: New prednisone 50 mg tablet 50 mg PO DAILY Qty: 5 0RF No Action montelukast 4 mg tablet,chewable 4 mg PO QAM 0RF ropinirole 0.25 mg tablet 0.25 mg PO BEDTIME 0RF albuterol sulfate 90 mcg/actuation HFA aerosol inhaler 2 inh INHALATION Q6HR PRN (Reason: Wheezing) 0RF Stand Alone Forms: Work Release Note <Aaron Graham, DO - Last Filed: 03/01/21 07:18> Cosign ED Attending Cosignature Attestation: Dr Graham Co-Sign Statement: I was available for consultation during this patient's emergency department visit. This chart is signed by myself for administrative purposes only. I did not have direct contact with this patient during this visit. They were seen independently by the [facility].
[2021-02-27 15:28] LABS: Reflexed Lactate in 2 Hours Y
[2021-02-27] MEDS: ALBUTEROL/IPRATROPIUM 3 ML AMPUL INH (15:29)
== END 2021-02-27 16:32 | disposition home or self-care (01) ==
PROVIDERS: Emergency Medicine; Emergency Provider Physician Assistant
DX: J45.901 Unspecified asthma with (acute) exacerbation (principal); J06.9 Acute upper respiratory infection, unspecified; R91.8 Other nonspecific abnormal finding of lung field; Z20.822 Contact with and (suspected) exposure to COVID-19; B97.89 Other viral agents as the cause of diseases classified elsewhere
CPT/HCPCS: 36415; 71045; 71275; 80053; 82550; 82728; 83605; 83880; 84145; 84484; 85025; 85379; 86140; 87040; 87633; 87635; 93005; 94640; 99284; C9803